=== PATIENT | female | born 1990 | race African-American/Black ===

== ENCOUNTER 2017-04-02 16:21 | Emergency (ER) | payer OTHER ==
[~2017-04-02] VITALS: Ht 152.4 cm; Wt 72.0 kg
[~2017-04-02 16:21] MED LIST: IBUP800T23 PO; METHO500 PO; OCEL3TAB PO; TRAM50 PO; [UNRECOGNIZED DRUG - CODE] TOP
[2017-04-02 16:24] VITALS: BP 131/92; PULSE 78; RESP 14; TEMP 97.8; O2SAT 97
--- NOTE | 2017-04-02 16:30 | PD ---
Physical Exam Time Seen by Provider: 16:30 Narrative 26 y/o female here for evaluation of R lower leg pain, cramping sensation, intermittently for one week, now involving the R thigh. Concerned about DVT. Vital signs reviewed. Seen at triage desk. Awaiting bed placement. Data Data Last Documented VS Vital Signs Date Time Temp Pulse Resp B/P Pulse Ox O2 Delivery O2 Flow Rate FiO2 04/02/17 16:24 97.8 78 14 131/92 97 MDM Medical Record Reviewed: Yes Supervised Visit with MARIPOSA: Domenico Ann Apr 02, 2017 16:30
[2017-04-02] MEDS ORDERED: NUVAMIS VAGINAL (16:41)
[2017-04-02] MEDS ORDERED: MULT-65 PO (16:41)
--- NOTE | 2017-04-02 16:51 | PD ---
HPI Chief Complaint: Pain: Acute or Chronic Time Seen by Provider: 16:47 Travel History International Travel<30 days: No Contact w/Intl Traveler<30days: No Traveled to known affect area: No History of Present Illness HPI Patient comes in with concerns over possible DVT in right lower extremity. Patient states a week ago she is having pain on lateral aspect of her right calf that went away about 3 days ago she began pain in her anterior right thigh. Pain is described as a muscle soreness is worse with movement of her right thigh that occasionally radiates to the back of her right thigh. Patient does report taking control, denies tobacco use, reports recent travel to [place] over the weekend by car. Denies any chest pain, shortness of breath, abdominal pain, , edema, or known injury. Patient states she had been working out again, is something she had not done for a while. Patient states that today she thought she may have been low on potassium ate 2 bananas and drink some Gatorade however the pain persisted. PFSH Past Medical History Arthritis: Yes (osteo) Diminished Hearing: No Medical other: Yes (bulging disc x 2) ?: Unknown Past Surgical History Surgical History: No Previous Surgery Social History Alcohol Use: Yes (social drinker) Tobacco Use: No Substance Use: No Allergies-Medications (Allergen,Severity, Reaction): Coded Allergies: No Known Allergies (Unverified , 04/02/17) Reported Meds & Prescriptions Reported Meds & Active Scripts Active Reported Multi-Vitamin Daily (Multiple Vitamin) 1 Tab Tab 1 Tab PO DAILY Nuvaring Vaginal Insert (Etonogestrel-Ethinyl Estradiol Vaginal Insert) 0.120- 0.015 Mg/24 Hr Vagring 1 Applic VAGINAL DIRECTED Review of Systems Except as stated in HPI: all other systems reviewed are Neg Physical Exam Narrative GENERAL: Well-developed, overly nourished, in no acute distress, and non-ill appearing. SKIN: Focused skin assessment warm and dry. HEAD: Atraumatic. Normocephalic. EYES: Pupils equal and round. EOMI. No scleral icterus. No injection or drainage. ENT: No nasal bleeding or discharge. Mucous membranes pink and moist. NECK: Trachea midline. Supple. No nuclear rigidity. CARDIOVASCULAR: Dorsal pulses 2+, intact, and equal bilaterally. Capillary refill less than 2 seconds. RESPIRATORY: No accessory muscle use. No respiratory distress. MUSCULOSKELETAL: No obvious deformities. No clubbing. No cyanosis. No edema. Full range of motion. Hip: FROM and equal BL with passive flexion, extension, Abduction, Adduction, and internal/external rotation. Pulses equal BL distal to injury. Capillary refill less than 2 seconds distal to injury and equal BL. FROM distal to injury and equal BL. Strength distal to injury equal BL. NV intact distal to injury and equal BL. Plantar flexion and dorsal flexion equal BL. Dorsal pulses equal BL. Sensation equal BL 1st web space. Negative Homans sign. NEUROLOGICAL: Awake and alert. No obvious cranial nerve deficits. Motor grossly within normal limits. Normal speech. PSYCHIATRIC: Appropriate mood and affect; insight and judgment normal. Data Data Last Documented VS Vital Signs Date Time Temp Pulse Resp B/P Pulse Ox O2 Delivery O2 Flow Rate FiO2 04/02/17 16:24 97.8 78 14 131/92 97 Orders Us Leg Venous Doppler (04/02/17 16:44) MDM Medical Decision Making Medical Screen Exam Complete: Yes Emergency Medical Condition: Yes Interpretation(s) Ultrasound read by the radiologist shows: Negative. No sonographic or Doppler findings of deep venous thrombosis. Differential Diagnosis DVT, musculoskeletal pain, strain, other Narrative Course Patient in no obvious distress upon re-evaluation. All pertinent Radiology result(s) discussed with patient. Discussed patient with Dr. Jon prior to discharge, who is in agreement with plan of care and disposition. Any questions /concerns in reference to patient diagnosis/condition discussed and clarified prior to patient's discharge. Reinforced sheer importance of close follow up with patient's primary physician or primary care clinic. Instructed patient to return to ED immediately, if symptoms return/worsen. Pt showed understanding of above instructions. Further instructions and recommendations were detailed in discharge paperwork. Pt ambulated without difficulty out of ED at discharge. Diagnosis Primary Impression: Musculoskeletal pain of right lower extremity Patient Instructions: General Instructions, Musculoskeletal Pain (ED) Additional Instructions: Follow-up with your primary care physician next week for reevaluation. Use over -the-counter Tylenol and/or ibuprofen as needed for pain. Drink plenty of non- caffeinated and nonalcoholic fluids. Return to the emergency department if symptoms get worse. Disposition: 01 DISCHARGE HOME Condition: Stable Deerk Villarreal Apr 02, 2017 16:51
--- NOTE | 2017-04-02 17:52 | RADRPT ---
EXAM DATE/TIME: 04/02/2017 17:21 [facility] COMPARISON: No previous studies available for comparison. INDICATIONS : Right leg pain. MEDICAL HISTORY : Osteoarthritis. Bulging disc. SURGICAL HISTORY : None. ENCOUNTER: Initial ACUITY: 1 week PAIN SCORE: 3/10 LOCATION: Right leg. TECHNIQUE: Venous ultrasound of the leg was performed from the inguinal ligament to the proximal calf. Real-jennifer e, color Doppler and spectral tracing, compression and augmentation techniques were used. FINDINGS: There is normal compressibility of the deep venous system from the inguinal region to the proximal ca lf. No echogenic clot is seen in the lumen of the common femoral, femoral, popliteal, and posterior tibial veins. There is a normal response of the venous system to proximal and distal augmentation an d respiration. CONCLUSION: Negative. No sonographic or Doppler findings of deep venous thrombosis. Bandar Ross MD on April 02, 2017 at 17:49 Board Certified Radiologist. This report was verified electronically.
[2017-04-03] MEDS ORDERED: IBUP800T23 PO (06:10)
[2017-04-03] MEDS ORDERED: CYCL1TAB29 PO (06:10)
== END 2017-04-02 18:31 | disposition home or self-care (01) ==
LOC: NEPD 16:21
DX: M79.661 Pain in right lower leg (principal); M79.1 Myalgia
CPT/HCPCS: 93971

== ENCOUNTER 2017-04-03 05:15 | Emergency (ER) | payer OTHER ==
[~2017-04-03 05:15] MED LIST changes: -IBUP800T23 PO; -METHO500 PO; +MULT-65 PO; +NUVAMIS VAGINAL; -OCEL3TAB PO; -TRAM50 PO; -[UNRECOGNIZED DRUG - CODE] TOP
[2017-04-03 05:17] VITALS: BP 125/81; PULSE 86; RESP 16; TEMP 98.1; O2SAT 99
[2017-04-03] MEDS ORDERED: KETOROLAC TROMETHAMINE 60 MG/2 ML (IM) VIAL IM ONE (05:45)
[2017-04-03] MEDS ORDERED: ORPHENADRINE INJ 60 MG/2 ML AMP IM ONE (05:45)
[2017-04-03] MEDS ORDERED: IBUP800T23 PO (06:10)
[2017-04-03] MEDS ORDERED: CYCL1TAB29 PO (06:10)
--- NOTE | 2017-04-03 06:10 | PD ---
HPI Chief Complaint: Pain: Acute or Chronic Time Seen by Provider: 05:40 Travel History International Travel<30 days: No Contact w/Intl Traveler<30days: No Traveled to known affect area: No History of Present Illness HPI Patient is a 26-year-old female presented emergent reevaluation of right thigh and hamstring pain. Patient was seen and evaluated yesterday in the emergency department, she states she cannot get any relief from the pain. She reports taking ibuprofen as directed. She denies any swelling in her extremity, numbness, weakness. She reports on Wednesday she stretched in bed subsequently feeling significant pain in her medial right thigh and hamstring. She states the pain improved somewhat but it continued. She states that her aunt told her to come yesterday to emergency department to be checked for a blood clot. She reports that she does not have a blood clot but continues to have the pain. PFSH Past Medical History Arthritis: Yes (osteo) Diminished Hearing: No ?: Not LMP: last month Past Surgical History Surgical History: No Previous Surgery Social History Alcohol Use: Yes (social drinker) Tobacco Use: No (never) Substance Use: No Allergies-Medications (Allergen,Severity, Reaction): Coded Allergies: No Known Allergies (Unverified , 04/03/17) Reported Meds & Prescriptions Reported Meds & Active Scripts Active Reported Multi-Vitamin Daily (Multiple Vitamin) 1 Tab Tab 1 Tab PO DAILY Nuvaring Vaginal Insert (Etonogestrel-Ethinyl Estradiol Vaginal Insert) 0.120- 0.015 Mg/24 Hr Vagring 1 Applic VAGINAL DIRECTED Review of Systems Except as stated in HPI: all other systems reviewed are Neg Musculoskeletal: Positive: Myalgias, Cramping Physical Exam Narrative GENERAL: Well-nourished, well-developed patient. SKIN: Focused skin assessment warm/dry. HEAD: Normocephalic. EYES: No scleral icterus. No injection or drainage. NECK: Supple, trachea midline. No JVD or lymphadenopathy. CARDIOVASCULAR: Regular rate and rhythm without murmurs, gallops, or rubs. RESPIRATORY: Breath sounds equal bilaterally. No accessory muscle use. GASTROINTESTINAL: Abdomen soft, non-tender, nondistended. MUSCULOSKELETAL: No cyanosis, or edema. Tenderness to palpation on the medial aspect of the right upper thigh and right hamstring. Patient is neurovascularly intact with 5/5 muscle strength in bilateral lower extremities. BACK: Nontender without obvious deformity. No CVA tenderness. Data Data Last Documented VS Vital Signs Date Time Temp Pulse Resp B/P Pulse Ox O2 Delivery O2 Flow Rate FiO2 04/03/17 05:17 98.1 86 16 125/81 99 Room Air Orders Ketorolac Inj (Toradol Inj) (04/03/17 05:45) Orphenadrine Inj (Norflex Inj) (04/03/17 05:45) MDM Medical Decision Making Medical Screen Exam Complete: Yes Emergency Medical Condition: Yes Interpretation(s) Vital Signs Date Time Temp Pulse Resp B/P Pulse Ox O2 Delivery O2 Flow Rate FiO2 04/03/17 05:17 98.1 86 16 125/81 99 Room Air Differential Diagnosis Muscle strain versus brain versus spasm versus other Narrative Course Patient is a 26-year-old female presenting to the emergency department for reevaluation of the right leg pain she was seen for yesterday. Upon review of medical records patient did not have a blood clot. She is advised over-the- counter ibuprofen which she has been doing. Physical examination appears most consistent muscle strain, spasm. Patient was given Norflex and Toradol in the emergency department. She is encouraged to alternate heat and ice the affected area, continue range of motion exercises, avoid bed rest, avoid exacerbating activities. She is encouraged to follow-up with her primary doctor. She is advised to take may take 1-2 weeks for the muscle to feel better. She was advised to return to emergency department for any new or worsening symptoms. She verbalizes understanding of these instructions. Patient is stable for discharge. Diagnosis Primary Impression: Musculoskeletal pain of right lower extremity Additional Impression: Muscle strain of right thigh Qualified Code: S76.911A - Muscle strain of right thigh, initial encounter Referrals: Primary Care Physician Patient Instructions: General Instructions, Muscle Spasm (ED), Muscle Strain ( ED) Additional Instructions: Apply warm moist heat to the effected area, continue range of motion exercises, avoid exacerbating activities, avoid bed rest Take medications as directed Follow-up with her primary doctor Return to the emergency department for any new or worsening symptoms Med/Other Pt SpecificInfo: Prescription(s) given Scripts Cyclobenzaprine (Flexeril)10 Mg Tab10 Mg PO TID PRN (MUSCLE SPASM) 10 Days Ref 0 Prov:Augusta Bolaños 04/03/17 Ibuprofen 800 Mg [id number] Mg PO Q6HR PRN (PAIN) #40 TAB Ref 0 Prov:Augusta Bolaños 04/03/17 Disposition: 01 DISCHARGE HOME Condition: Stable Augusta Bolaños Apr 03, 2017 06:10
== END 2017-04-03 06:52 | disposition home or self-care (01) ==
LOC: NEPD 05:15
DX: M79.604 Pain in right leg (principal); S76.911A Strain of unspecified muscles, fascia and tendons at thigh level, right thigh, initial encounter; M79.1 Myalgia; X50.1XXA Overexertion from prolonged static or awkward postures, initial encounter; Y92.003 Bedroom of unspecified non-institutional (private) residence as the place of occurrence of the external cause
CPT/HCPCS: 96372; 99284; J1885; J2360

== ENCOUNTER 2017-08-05 11:45 | Emergency (ER) | payer OTHER ==
[~2017-08-05] VITALS: Ht 152.4 cm; Wt 72.7 kg
[2017-08-05 11:45] VITALS: BP 123/85; PULSE 94; RESP 14; TEMP 98.5; O2SAT 97
[~2017-08-05 11:45] MED LIST changes: +CYCL1TAB29 PO; +IBUP800T23 PO
[2017-08-05] MEDS ORDERED: PROPARACAINE HCL 0.5% OPHT SOLN 15 ML BTL LEFT EYE ONE (12:30)
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
[2017-08-05] MEDS ORDERED: KETOROLAC TROMETHAMINE 60 MG/2 ML (IM) VIAL IM ONE (13:30)
[2017-08-05] MEDS ORDERED: ORPHENADRINE INJ 60 MG/2 ML AMP IM ONE (13:30)
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
[2017-08-05] MEDS ORDERED: IBUP800T23 PO (14:30)
[2017-08-05 14:45] VITALS: RESP 16
[2017-08-05] MEDS ORDERED: ERYTOIN10 LEFT EYE (14:45)
== END 2017-08-05 15:05 | disposition home or self-care (01) ==
LOC: PHEFT 11:45
DX: S00.10XA Contusion of unspecified eyelid and periocular area, initial encounter (principal); S60.221A Contusion of right hand, initial encounter; Y92.410 Unspecified street and highway as the place of occurrence of the external cause; V89.2XXA Person injured in unspecified motor-vehicle accident, traffic, initial encounter
CPT/HCPCS: 70150; 70486; 73130; 96372; 99284; J1885; J2360